=== PATIENT | male | born 2005 | race Caucasian/White ===

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

== ENCOUNTER 2024-09-18 08:09 | Emergency (ER) | payer MEDICARE, MEDICAID, SELFPAY ==
[2024-09-18 08:19] VITALS: BP 139/93; PULSE 98; RESP 16; TEMP 36.8; O2SAT 99
--- NOTE | 2024-09-18 08:31 | ED_ITS ---
HPI - Dental/Oral General Chief complaint: Dental/Oral Stated complaint: DENTAL ABSCESS Time Seen by Provider: 09/18/24 08:20 Source: patient and RN notes reviewed Mode of arrival: ambulatory Limitations: no limitations History of Present Illness HPI Narrative: 19-year-old male presents Express Care with grandmother complaining of left lower dental pain. Patient states the pain started approximately 4-5 days ago. Patient reports pain near his 2nd molar in his left lower gum. Patient reports mild swelling pain with chewing. Patient recently had multiple teeth pulled out for tooth decay. Patient can not get into the dentist yet. Patient denies any fevers, breathing problems, difficulty swallowing, or any other symptoms. Patient has been taking Motrin and Tylenol 3s with some relief. Related Data Home Medications ?Medication ?Instructions ?Recorded ?Confirmed ?Last Taken ?Type No Home Medications 09/18/24 09/18/24 Unknown History Allergies Allergy/AdvReac Type Severity Reaction Status Date / Time Sulfa (Sulfonamide Allergy Intermediate Rash Verified 09/18/24 08:18 Antibiotics) Review of Systems Review of Systems: CONSTITUTIONAL: Denies fever, chills, or sweats. EYES: Denies visual changes, redness, or discharge. ENT: Denies rhinorrhea, congestion, sore throat, or otalgia. MOUTH: Dental pain. CARDIOVASCULAR: Denies chest pain, palpitations, or edema. RESPIRATORY: Denies cough or dyspnea. GASTROINTESTINAL: Denies abdominal pain, nausea, vomiting, or diarrhea. GENITOURINARY: Denies dysuria or hematuria. SKIN: Denies rash or itching. MUSCULOSKELETAL: Denies back pain, joint pain, or myalgia. NEUROLOGIC: Denies headache, numbness, or weakness. PSYCHIATRIC: Denies anxiety or depression. All other systems reviewed are negative, except as documented in HPI. PMFSH Comments At the time of my signature, I reviewed and agree with the nursing past medical, surgical, social, and family history. There is no relevant family history pertinent to the patient complaint. Exam Narrative: GENERAL: This is a well-nourished, well-developed adult, in no apparent distress. They are non ill-appearing, nontoxic appearing. HEAD: normocephalic, atraumatic. EYES: Sclera clear/white. Conjunctiva normal. Vision is grossly intact. Ex traocular movements intact EARS: External ears normal, auditory canals clear and without drainage, TMs normal without perforation. Hearing grossly intact. NOSE: External nose normal with no obvious nasal discharge, nasal turbinates without redness, no rhinorrhea. THROAT: Mucous membranes moist, posterior pharynx clear, without erythema or swelling. Uvula midline. OROPHARYNX: Prominent tooth decay. There is missing teeth. Gingivitis is present. Erythematous and tender to palpate near tooth 18, no area of fluctuance or induration. No exudate. No pain or swelling under the tongue. Tongue is normal. NECK: Neck supple, CARDIOVASCULAR: Regular rate and rhythm RESPIRATORY: Respiratory rate normal, respiratory effort nonlabored, no respiratory distress SKIN: warm, Dry, intact with no suspicious lesions or rash, good texture and turgor. NEURO: awake, alert, and oriented to person, place and time. There were no obvious focal neurologic abnormalities. EXTREMITIES: No joint tenderness, effusion, or edema noted. Course Course Emergency Course: Portions of this record may have been created with voice recognition software Level of Care: Express Care Visit Vital Signs Vital signs: Vital Signs Temperature 98.3 F 09/18/24 08:19 Pulse Rate 98 09/18/24 08:19 Respiratory Rate 16 09/18/24 08:19 Blood Pressure 139/93 H 09/18/24 08:19 Pulse Oximetry 99 09/18/24 08:19 Temperature 98.3 F 09/18/24 08:19 Pulse Rate 98 09/18/24 08:19 Respiratory Rate 16 09/18/24 08:19 Blood Pressure 139/93 H 09/18/24 08:19 Pulse Oximetry 99 09/18/24 08:19 Reviewed MDM - Dental/Oral MDM Narrative Medical decision making narrative: There may be small dental abscess forming given the swelling around the 2nd molar. Will go ahead and treat with Augmentin. Will send over viscous lidocaine prescription. Discussed physical exam findings. Advised supportive measures and signs/symptoms to go to the ER. Pt is appropriate for outpt treatment and f/u. Differential Diagnosis Differential diagnosis: Likely gingival abscess, dental caries, toothache and dental abscess Critical Care Time Critical Care Time Critical Care Time: No Discharge Plan Discharge Clinical Impression: Dental caries Patient Disposition: Home Condition: Stable Instructions: Antibiotic Form, Dental Abscess (ED) Additional Instructions: Take the antibiotics as directed. You may alternate Tylenol and ibuprofen as needed for pain. You may use viscous lidocaine as needed for pain in your mouth. Use a Q-tip and apply directly to the affected area. [place] your teeth and floss at least 2 times a day. You may use mouthwash after each brushing as well. Follow-up with dentist next week. If you developed worsening swelling, fevers, difficulty swallowing or breathing, difficulty opening her jaw, swelling under the tongue, or any other concerns please go to the ER immediately. Patient Language: Mongolian Prescriptions: New lidocaine HCl [Lidocaine Viscous] 2 % solution 1 applic mucous membrane TID PRN (Reason: pain) Qty: 100 0RF amoxicillin-pot clavulanate 875-125 mg tablet 1 tablet PO Q12H 7 Days Qty: 14 0RF No Action No Home Medications Follow-up/Referrals: Pola Gresham MD [Primary Care Provider] - Time of Disposition: 08:27
== END 2024-09-18 08:35 | disposition home or self-care (01) ==
PROVIDERS: PCP Family Medicine
DX: K02.9 Dental caries, unspecified (principal)
CPT/HCPCS: 99213; G0463